=== PATIENT | female | born 1945 | race Caucasian/White ===

== ENCOUNTER 2016-05-08 04:50 | Day surgery (SDC) | payer MEDICARE, OTHER ==
[~2016-05-08 04:50] MED LIST: ESTRATEST PO; ETODOLAC400 MG OR; MIRAPEX250 PO; NEUR100 PO; OS500+D PO; POT GLUCONAT595 M1 OR; ULTRAM50 PO; VITAMIN D31000 UNIT PO
== END 2016-05-08 23:59 | disposition home health service (06) ==
LOC: SDC 04:50
PROVIDERS: Orthopaedic Surgery
PROC: 3E0R33Z Introduction of Anti-inflammatory into Spinal Canal, Percutaneous Approach (ICD-10-PCS; principal; 2016-05-08 08:00)
DX: M54.16 Radiculopathy, lumbar region (principal); M19.90 Unspecified osteoarthritis, unspecified site; Z90.49 Acquired absence of other specified parts of digestive tract; Z98.890 Other specified postprocedural states; Z90.710 Acquired absence of both cervix and uterus
CPT/HCPCS: J1040; J2250; J3010; Q9967

== ENCOUNTER 2016-07-19 05:23 | Day surgery (SDC) | payer MEDICARE, OTHER | END 2016-07-19 23:59 | disposition home or self-care (01) | LOC: SDC 05:23 | PROVIDERS: Orthopaedic Surgery | PROC: 3E0S3BZ Introduction of Anesthetic Agent into Epidural Space, Percutaneous Approach (ICD-10-PCS; 2016-07-19) | PROC: 3E0S33Z Introduction of Anti-inflammatory into Epidural Space, Percutaneous Approach (ICD-10-PCS; principal; 2016-07-19 07:45) | DX: M54.16 Radiculopathy, lumbar region (principal); M54.5 Low back pain; Z79.899 Other long term (current) drug therapy; Z79.891 Long term (current) use of opiate analgesic | CPT/HCPCS: J1040; J2250; J3010; Q9967 ==